=== PATIENT | male | born 1980 | race Caucasian/White ===

== ENCOUNTER 2016-10-14 14:20 | Emergency (ER) | payer MEDICAID | END 2016-10-14 18:28 | disposition home or self-care (01) | LOC: D.ER 14:20 | DX: M54.5 Low back pain (principal); F17.200 Nicotine dependence, unspecified, uncomplicated; H54.41 Blindness, right eye, normal vision left eye ==

== ENCOUNTER 2016-11-22 14:40 | Emergency (ER) | payer MEDICAID | END 2016-11-22 17:20 | disposition home or self-care (01) | LOC: D.ER 14:40 | DX: M54.5 Low back pain (principal); S39.012A Strain of muscle, fascia and tendon of lower back, initial encounter; X58.XXXA Exposure to other specified factors, initial encounter; Y93.89 Activity, other specified; Y92.89 Other specified places as the place of occurrence of the external cause; M25.562 Pain in left knee; H54.41 Blindness, right eye, normal vision left eye; F17.200 Nicotine dependence, unspecified, uncomplicated ==